=== PATIENT | female | born 1955 | race Caucasian/White ===

== ENCOUNTER 2018-08-02 10:43 | Emergency (ER) | payer MEDICARE, OTHER ==
[~2018-08-02] VITALS: Ht 170.2 cm; Wt 72.7 kg
[~2018-08-02 10:43] MED LIST: CLON-429 PO; LITH300T26 PO; LORA1TAB PO
[2018-08-02 10:52] VITALS: Ht 170.2 cm; Wt 72.7 kg
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
[2018-08-02] MEDS ORDERED: CLON1TAB13 PO (11:08)
[2018-08-02] MEDS ORDERED: LITH300T26 PO ×2 (11:08)
[2018-08-02] MEDS ORDERED: OLAN10TA7 PO (11:08)
[2018-08-02] MEDS ORDERED: IBUP-1542 PO (13:19)
[2018-08-02 13:38] VITALS: BP 133/88; PULSE 79; RESP 18
== END 2018-08-02 13:49 | disposition home or self-care (01) ==
LOC: E/R 10:43
DX: M54.2 Cervicalgia (principal); M54.5 Low back pain
CPT/HCPCS: 72100; 72125